=== PATIENT | female | born 1945 | race Caucasian/White ===

== ENCOUNTER → 2016-04-12 | Outpatient (CLI) | payer BC ==
--- NOTE | 2016-04-12 11:47 | DX ---
Chest, PA and Lateral Views, 10:55 a.m. on April 12, 2016 Clinical History: 70-year-old female presenting for follow up of a right middle lobe opacity. ICD10 Diagnostic Code: J18.9. Comparison Studies: CT scan of the chest dated January 30, 2016, and chest radiography dated January 29, 2016 and December 26, 2015. Findings: The cardiac and mediastinal silhouette is stable, with some mild peribronchial thickening. There is some localized airspace disease and bronchiectasis involving the right middle lobe, unchange d from before. There is mild chronic elevation of the anterior right hemidiaphragm. There is no pleur al effusion, peripheral interstitial edema, or pneumothorax. There is an old moderate T8 compression fracture. Minimal biapical pleural thickening is seen. Mild midlumbar dextroscoliosis is observed. Impression: Radiographically unchanged from previous exams. Continued surveillance is warranted.
== END ==
LOC: FIMAGING 10:58
PROVIDERS: ATTEND Internal Medicine
DX: R91.8 Other nonspecific abnormal finding of lung field (principal)

== ENCOUNTER 2016-04-14 07:20 | Emergency (ER) | payer BC ==
[2016-04-14 07:31] VITALS: RESP 16
--- NOTE | 2016-04-14 07:36 | EDPHY ---
H & P Time Seen by Provider: 04/14/16 07:36 HPI/ROS: CHIEF COMPLAINT: Left wrist injury HISTORY OF PRESENT ILLNESS: Slipped at 7:00 a.m. and landed on a curb injuring her left wrist. No other injuries. No weakness or numbness distally. No laceration. REVIEW OF SYSTEMS: Did not hit her head and no loss of consciousness PAST MEDICAL HISTORY: Breast lumpectomy, no previous orthopedic except for right wrist fracture at 17 years old Social history: Nonsmoker 153/85 at 7:43 a.m. General Appearance: Alert and conversant, cooperative. Left wrist dorsal deformity and swelling. Normal range of motion of left elbow and shoulder. No other forearm or hand tenderness. Skin intact. Normal motor sensory and capillary refill distally. Emergency Department course/MDM: Verbal consent obtained for hematoma block. Hematoma block performed with standard sterile technique using 5 mL is a 1% xylocaine on the left wrist personally by myself. This resulted in marked improvement of the patient's pain symptoms. 800: X-ray results reviewed with the patient personally. X-ray reviewed personally by myself shows dorsally angulated distal radius fracture comminuted intra-articular with ulnar styloid involvement. Yu at 823; his recommendation is for me to attempt closed reduction and then go directly to his office. Verbal consent obtained from the patient for fracture reduction. Close reduction with distraction performed by myself. Left forearm sugar-tong splint applied to the patient by myself with assistance of emergency department EMT. After splint application it is in appropriate position and distal neurovascular intact. Postreduction x-ray still shows shortening and dorsal angulation, viewed directly by myself. 902: Incomplete reduction and orthopedic follow-up discussed with the patient, she will go directly to Dr. Nicholas office from the emergency department. Patient was warned she may need open reduction internal fixation. Smoking Status: Never smoked Constitutional: Initial Vital Signs Temperature (C) 36.4 C 04/14/16 07:25 Heart Rate 67 04/14/16 07:25 Respiratory Rate 16 04/14/16 07:25 O2 Sat (%) 94 04/14/16 07:25 O2 Delivery Mode Room Air Allergies/Adverse Reactions: No Known Allergies Allergy (Unverified 11/14/15 09:45) Home Medications: Medication Instructions Recorded Alendronate Sodium [Fosamax 70 MG 70 mg PO MO@0700 04/14/16 (*)] GABAPENTIN 400 mg PO 04/14/16 MDM/Departure - Depart Disposition: Home, Routine, Self-Care Clinical Impression: Wrist fracture, left Condition: Good Instructions: Wrist Fracture in Adults (ED) Referrals: Janet Hampton MD [Primary Care Provider] - As per Instructions Moris Nicholas MD [Medical Doctor] - As per Instructions (go now to Dr. Nicholas' s office; they are expecting you for further evaluation)
[2016-04-14 08:25] VITALS: BP 146/95; PULSE 65; TEMP 97.7; O2SAT 95
--- NOTE | 2016-04-14 09:05 | DX ---
Left Wrist, 3 views, 7:52 a.m. History: Pain post trauma. Fall on ice today. Findings: There is an acute comminuted Colles' fracture of the distal radius and ulna. There is dors al angulation of the distal radius by approximately 27 degrees. There is an intra-articular component to the distal radial fracture. There is dorsal displacement of the distal radius by approximately 4. 5 mm. The ulnar styloid is comminuted and laterally displaced. Impression: Comminuted Colles' fracture with dorsal displacement , intra-articular component and angu lation.
--- NOTE | 2016-04-14 09:08 | DX ---
Left Wrist, 4 views, 8:49 p.m. History: Post reduction Colles' fracture Comparison: prereduction at 7:52 a.m. Findings: Overlying cast material there is fine bony detail. There is still dorsal angulation of the distal radius by approximately 28 degrees. There is persistent dorsal displacement of the distal rad ius, now measuring 9 mm. Impression: Little change in position since the prereduction exam.
== END 2016-04-14 09:11 | disposition home or self-care (01) ==
PROC: 0PSJXZZ Reposition Left Radius, External Approach (ICD-10-PCS; principal; 2016-04-14)
DX: S52.502A Unspecified fracture of the lower end of left radius, initial encounter for closed fracture (principal); W18.49XA Other slipping, tripping and stumbling without falling, initial encounter; Y93.89 Activity, other specified

== ENCOUNTER → 2016-11-23 | Outpatient (CLI) | payer BC | LOC: FIMAGING 12:50 | PROVIDERS: ATTEND Internal Medicine | DX: Z12.31 Encounter for screening mammogram for malignant neoplasm of breast (principal); Z85.3 Personal history of malignant neoplasm of breast | CPT/HCPCS: G0202 ==

== ENCOUNTER → 2017-04-19 | Outpatient (CLI) | payer BC | LOC: CIMAGING 08:25 | PROVIDERS: ATTEND Internal Medicine Critical Care Medicine | DX: J47.9 Bronchiectasis, uncomplicated (principal) | CPT/HCPCS: 71250-PO ==

== ENCOUNTER → 2017-11-21 | Outpatient (CLI) | payer BC | LOC: FIMAGING 10:09 | PROVIDERS: ATTEND Obstetrics & Gynecology Gynecology | DX: Z12.31 Encounter for screening mammogram for malignant neoplasm of breast (principal); Z85.3 Personal history of malignant neoplasm of breast ==